=== PATIENT | female | born 2000 | race Caucasian/White ===

== ENCOUNTER 2024-04-18 05:47 | Day surgery (SDC) | payer OTHER, SELFPAY ==
[2024-04-09 12:23] VITALS: BMI 23.8
[2024-04-18] VITALS (8 sets, daily range): BP systolic 120–152; BP diastolic 72–86; PULSE 71–140; RESP 16–20; TEMP 36.7–36.8; O2SAT 96–100
--- NOTE | 2024-04-18 06:58 | P.OP_ITS ---
Procedure Note - Detailed Date of Procedure 04/18/24 Pre-op Diagnosis Bilateral Breast Hypertrophy Post-op Diagnosis Same Procedure Performed bilateral breast reduction Surgeon Sharmaine Foster MD [employer] Modeler Sandra Brown PA-C Anesthesia General Description of Procedure Patient was seen in the preoperative holding area where the breasts were marked for an inferior pedicle Figueroa pattern reduction. Consent form was signed. Patient was taken back to the operating room and placed on the table in the supine position. Time-out was performed with Anesthesia, surgeon, and staff agreeing on patient's name, Site, and surgery to be performed. SCDs were placed on the lower extremities and inflated. Antibiotics were given IV. After general anesthesia was administered the breasts were prepped and draped in the usual sterile fashion. I took my attention 1st to the left breast where I used a saline moistened lap pad and Lluvia clamp to create a breast tourniquet. 38 mm nipple Sizer was used to circumscribe the nipple-areolar complex. I proceeded with de epithelializing a 7 cm wide inferior pedicle. I made my other skin incisions with a 15 blade scalpel. My superior skin flaps were elevated with Bovie cautery in Anthony's plane down to the level of the chest wall. I proceeded with resection of 407 g of breast tissue which yielded a smaller breast and breast commensurate with patient's reconstructive goals. Any further resection would have possibly compromsied the patient's neurovascular supply to remaining breast tissue. I irrigated with normal saline. Hemostasis with Bovie cautery. I plicated the pedicle with 2-0 Vicryl suture. 2-0 Prolene was used to secure the T-junction. 3-0 Vicryl was used for dermis. The nipple was brought out 5 cm above the inframammary fold at the most prominent portion of the breast at the breast midline and secured with 3-0 Vicryl suture. 4-0 Monocryl was used for subcuticular closure. The nipple appeared viable with good cap refill. I took my attention to the right breast where the same procedure was perf ormed. I used a breast tourniquet and 38 mm nipple Sizer insert scribe to 7 cm wide inferior pedicle. I made my other skin incisions and elevated skin flaps with Bovie cautery in Anthony's plane down to the chest wall. I proceeded with resection of 567 g of right breast tissue from this larger breast to match the left side reduction. I irrigated with normal saline and hemostasis with Bovie cautery. I plicated the pedicle with 2-0 Vicryl suture. 2-0 Prolene was used to secure the T junction. 3-0 Vicryl was used for dermis. The nipple was brought out 5 cm above the inframammary fold at the most prominent portion of the breast at the breast midline and secured with 3-0 Vicryl suture. 4-0 Monocryl was used for subcuticular closure. There was reasonable size shape and symmetry to the breasts. The nipples appeared viable with good cap refill. I proceeded with injecting 20 cc of 1% lidocaine with epinephrine and 0.5% Marcaine plain along the inframammary fold and anterior axillary line of each breast. A dressing of Mastisol, Steri-Strips, 4x4s, ABDs and a breast binder was then applied. The patient was awakened from anesthesia and transferred to the recovery room in stable condition. Complications: None estimated blood loss: 50 cc disposition: Patient tolerated the procedure well and will be going home later today. Sandra Brown PA-C was essential for positioning, retraction, closure and dressing placement. [facility] [place] Billing Surgery - Charge Forward: Surgery Billing ([id number] same for lyndsey cotton )
--- NOTE | 2024-04-18 06:58 | WPDHPUPDATE1 ---
History and Physical Update Update Date/Time: 04/18/24 06:58 Patient seen and examined in pre-operative holding area. No interval change in medical history or symptoms. Patient remembers previous discussion of benefits and alternatives to procedure. Continues to desire to proceed with bilateral breast reduction . I reviewed the risks including but not limited to bleeding ,infection, asymmetry, undesireable cosmetic appearance, partial/total skin/nipple loss, no change or worsening of symptoms, change in sensation, difficulty breast feeding. I discussed the possible use of assistants and their level of participation in the case. Patient stated understanding and signed the consent form wishing to proceed
--- NOTE | 2024-04-18 07:22 | P.PNAN_ITS ---
Anes - Initial Pre Proc Eval Procedure: Operation Date: 04/18/24 07:30 Proposed Procedures p Bilateral Breast Reduction Mammoplasty - Sharmaine Foster MD Date/Time: 04/18/24 07:22 Surgeon: Sharmaine Foster MD Pre Op Diagnosis: Bilateral Breast Hypertrophy Patient Data Age: 23 Gender: F Height: 1.57 m Weight: 60.8 kg Last Vital Signs Temp 36.8 C 04/18/24 06:45 Pulse 78 04/18/24 06:45 Resp 16 04/18/24 06:45 BP 120/72 04/18/24 06:45 Pulse Ox 100 04/18/24 06:45 O2 Del Method Room Air 04/18/24 06:45 Allergies Allergy/AdvReac Type Severity Reaction Status Date / Time No Known Allergies Allergy Verified 04/18/24 06:41 Home Medications Medication Instructions Recorded Confirmed Type No Home Medications 07/26/23 04/18/24 History Patient hx anesthesia problems: none Family hx anesthesia problems: none Results Review: All pre-operative results and documents have been reviewed as part of the pre- operative evaluation. [facility] Social History Social History Smoking status: Never smoker Second hand tobacco smoke exposure: No Alcohol intake: never Substance use: never Substance use type: does not use Do You Feel Safe in your Home?: Yes Lack of Transportation: No Lack of Food: Never True Current Housing: I Have Housing Concerned About Future Housing: No Difficulty Paying Gas/Electric Bills: No Difficulty Paying for Meds: No Currently Unemployed: No Education: Associate Degree Difficulty w/ Childcare or Family Care: No Living arrangements: with family Spiritual care concerns: No Anes - Eval Final PreProcedure Day of Procedure 04/18/24 07:22 Patient weight: normal Heart: regular rate and rhythm Lungs: clear to auscultation Airway: Mallampati scale Neurological: alert and oriented Last oral intake: >/= 8 hours ASA classification: I Emergent: no Anesthetic plan: proceed Anesthesia type and monitoring: general LMA and standard monitoring Results Review: All pre-operative results and documents have been reviewed as part of the pre- operative evaluation. Informed Consent: The patient's anesthetic plan and its attendant risks and benefits were discussed with the patient/family/POA. Questions were solicited and answers provided to the satisfaction of the patient/family/POA.
[2024-04-18] MEDS: LACTATED RINGERS 1,000 ML 30 ML IV CONT ×2 (07:25→10:00)
[2024-04-18] MEDS: ceFAZolin SODIUM 2 GM/20 ML SW SYRINGE IV PUSH (07:31)
[2024-04-18] MEDS: SCOPOLAMINE 1 MG PATCH 1 PATCH TRANSDERM (07:32)
[2024-04-18] MEDS: LIDO 1%/EPINEPHRINE 1:100,000 50 ML VIAL 40 ML INFILTRATE (09:48)
[2024-04-18] MEDS: BUPivacaine HCL 0.5% 10 ML AMP 50 ML INFILTRATE (09:48)
[2024-04-18] MEDS: fentaNYL CITRATE INJ (*CRX) 100 MCG/2 ML VIAL 25 MCG IV PUSH ×2 (10:11→10:24)
[2024-04-18] MEDS: oxyCODONE HCL (*CRX) 5 MG TAB IR PO (11:22)
--- NOTE | 2024-04-18 11:48 | WPDANESPN ---
Anes - Prog Note Post-Op Date/Time: 04/18/24 11:48 Cardiovascular status: normal Respiratory status: normal Airway patency: baseline Mental status: baseline Post-Op hydration status: normal Vital Signs: Last Vital Signs Temp 36.7 C 04/18/24 10:00 Pulse 91 04/18/24 11:20 Resp 20 04/18/24 11:20 BP 135/72 04/18/24 11:20 Pulse Ox 98 04/18/24 11:20 O2 Del Method Room Air 04/18/24 11:20 O2 Flow Rate 8 04/18/24 10:00 Pain Score (VAS): 2 I/O: Intake & Output 04/17/24 04/18/24 04/18/24 23:59 07:59 15:59 Intake Total 1000 Balance 1000 Patient Feedback: Patient satisfied with anesthetic care.
== END 2024-04-18 12:05 | disposition home or self-care (01) ==
PROVIDERS: PCP Nurse Practitioner Family; Visit Provider Plastic Surgery
PROC: 0HBV0ZZ Excision of Bilateral Breast, Open Approach (ICD-10-PCS; CPT 19318; principal; 2024-04-18 07:30)
DX: N62 Hypertrophy of breast (principal)
CPT/HCPCS: 19318 ×2

== ENCOUNTER 2024-04-18 11:07 | Outpatient (NON) | payer OTHER, SELFPAY | END 2024-04-18 11:08 | disposition home or self-care (01) | PROVIDERS: PCP Nurse Practitioner Family; Visit Provider Plastic Surgery | DX: N62 Hypertrophy of breast (principal) | CPT/HCPCS: 88305 ==